=== PATIENT | male | born 1975 | race Caucasian/White ===

== ENCOUNTER 2020-01-23 18:06 | Emergency (ER) | payer MEDICARE, MEDICAID, SELFPAY ==
--- NOTE | 2020-01-23 18:19 | ED.WOUNDLAC ---
HPI - Wound/Laceration General Chief Complaint: Wound/Laceration Stated Complaint: cut finger Time Seen by Provider: 01/23/20 18:19 Source: patient and family Mode of arrival: ambulatory Limitations: no limitations History of Present Illness HPI narrative: 44-year-old man comes in today complaining of laceration on his right index finger. Patient states that he cut it while opening a can of beans approximately 30 minutes ago. He denies any numbness or tingling. He has been holding pressure on it since it happened. He does not recall his last tetanus shot. Onset (ago): minute(s) (30) Extremity Location: Right: hand ( Radial aspect of the index finger) Place: home Context: accidental Associated symptoms: pain Treatments prior to arrival: bandage Related Data Home Medications Medication Instructions Recorded Confirmed Celebrex See Rx Instructions .ROUTE .COMPLEX 01/23/20 01/23/20 alprazolam [Xanax] 1 mg PO TID 01/23/20 01/23/20 fluoxetine [Prozac] 40 mg PO DAILY 01/23/20 01/23/20 omeprazole See Rx Instructions .ROUTE .COMPLEX 01/23/20 01/23/20 Allergies Allergy/AdvReac Type Severity Reaction Status Date / Time No Known Allergies Allergy Uncoded 06/12/19 12:50 Review of Systems Constitutional: Constitutional: Denies chills and Denies fever(s) Cardiovascular: Cardiovascular: Denies chest pain and Denies radiating jaw, neck or arm pain Respiratory: Respiratory: Denies cough, Denies dyspnea and Denies wheezing Gastrointestinal: Gastrointestinal: Denies abdominal pain, Denies nausea and Denies vomiting Musculoskeletal: Musculoskeletal: Denies arthralgias and Denies joint swelling Integumentary/Breasts: Skin/Breast: Reports as per HPI, Denies pruritus, Denies erythema and Denies rash Neurologic: Denies vertigo, Denies dizziness, Denies syncope, Denies focal weakness and Denies numbness Hematologic/Lymphatic: Hematologic/Lymphatic: Denies easy bleeding and Denies easy bruising Allergic/Immunologic: Allergic/Immunologic: Denies lip swelling and Denies wheezing PMFSH Past Medical History Medical History COPD with emphysema Diverticulitis Hypertension Social History Social History Smoking status: Current every day smoker Alcohol intake: never Substance use: never Living arrangements: with family Exam Const: General: healthy appearing and alert Orientation/consciousness: patient oriented x3 Limitations: no limitations Other: mild acute distress HENMT: Face and sinus: normal facial exam Resp: Effort & Inspection: normal respiratory effort Auscultation: clear to auscultation bilaterally, no rales, no rhonchi, no wheezes and diminished lung sounds diffuse Other: Good air movement Cardio: Rate: regular rate Rhythm: regular rhythm Heart sounds: no murmurs Skin: General skin exam: normal color, no jaundice and no pallor Rashes: no rashes Other: 1.5 cm lac on the radial aspect of the right index just distal to the PIP. Small very superficial laceration just distal to the wound described. Neuro: General: patient oriented x3, moves all extremities, no focal motor deficits and CN's II-XI intact bilaterally Speech: normal speech Gait exam (Neuro): Normal gait present Extrem: General: normal to inspection and no clubbing, cyanosis or edema Psych: Appearance: grossly normal and well kempt Mental Status: mental status grossly normal Affect: normal affect Attitude: cooperative Procedures Laceration Laceration 1: Date: 01/23/20 Time: 18:50 Site: hand ( Radial aspect of the right index finger between the DIP and PIP.) Side (If applicable): right Size (cm): 1.5 Description: linear Depth: simple, single layer Local Anesthetic: lidocaine 1% Amount of anesthesia used (mL): 1.0 Pre-repair: wound explored and irrigated
[2020-01-23] MEDS: TETANUS,DIPHTHERIA,AC PERTUSSIS ADULT 0.5 ML (ADACEL) IM (18:30)
[2020-01-23 18:31] VITALS: BP 149/102; PULSE 97; RESP 16; TEMP 37; O2SAT 98
== END 2020-01-23 19:22 | disposition home or self-care (01) ==
PROVIDERS: Emergency Provider Emergency Medicine; PCP Family Medicine
DX: S61.210A Laceration without foreign body of right index finger without damage to nail, initial encounter (principal); W26.8XXA Contact with other sharp object(s), not elsewhere classified, initial encounter
CPT/HCPCS: 12001; 90471; 90715; 99282